=== PATIENT | female | born 1985 | race Hispanic/Latino ===

== ENCOUNTER 2019-02-12 05:14 | Day surgery (SDC) | payer OTHER ==
[2019-02-12 05:53] LABS: Bilirubin Negative (Negative); Blood, Urine Negative (Negative); Clarity Cloudy (Clear); Glucose, Urine (Dipstick) Negative (Negative); Leukocyte Negative (Negative); Nitrite Negative (Negative); Protein, Urine (Dipstick) Negative (Neg-Trace); Specific Gravity, Urine 1.025 (1.005-1.030)
[2019-02-12 05:58] LABS: #Basophils 0.1 thou/uL (0.0-0.2); #Eosinphils 0.1 thou/uL (0.0-0.7); #Lymphocytes 1.4 thou/uL (1.20-3.40); #Monocytes 0.8 thou/uL (0.11-0.59); #Neutrophils 14.6 thou/uL (1.40-6.50); %Basophils 0.6 % (0.0-1.0); %Eosinophils 0.5 % (0.0-10.0); %Lymphocytes 8.1 % (21.0-51.0); %Monocytes 4.7 % (0.0-10.0); %Neutrophils 86.1 % (42.0-75.0); Hemoglobin 12.9 g/dL (12.0-16.0); Mean Corpuscular Hemoglobin 29.5 pg (27.0-31.0); Mean Corpuscular Volume 84.2 fL (78.0-98.0); Mean Platelet Volume 7.3 fL (7.4-10.4); Platelet Count 250 thou/uL (130-400); RBC Distribution Width 12.4 % (11.5-14.5); Red Blood Cell (RBC) Count 4.37 mill/uL (4.20-5.40); White Blood Cell (WBC) Count 16.9 thou/uL (4.8-10.8)
[2019-02-12] MEDS ORDERED: Fleet Enema 133 ML BOT ONE (06:09)
[2019-02-12 06:10] LABS: ALT (SGPT) 28 U/L (8-55); AST (SGOT) 23 U/L (5-34); Albumin 3.8 g/dL (3.5-5.0); Alkaline Phosphatase 75 U/L (40-150); Anion Gap 15 mmol/L (10-20); BUN (Urea Nitrogen) 8 mg/dL (7.0-18.7); Bilirubin, Total 0.3 mg/dL (0.2-1.2); Calc. Creatinine Clearance 0 mL/min (70-130); Calcium 9.5 mg/dL (7.8-10.44); Carbon Dioxide 18 mmol/L (22-29); Chloride 106 mmol/L (98-107); Estimated GFR-MDRD Greater than 90; Globulin 3.8 g/dL (2.4-3.5); Glucose 101 mg/dL (70-105); Potassium 3.7 mmol/L (3.5-5.1); Protein, Total 7.6 g/dL (6.0-8.3); Sodium 135 mmol/L (136-145)
--- NOTE | 2019-02-12 07:52 | ULT ---
Abdominal Ultrasound: Multiple grayscale images of right upper quadrant obtained according to protocol. INDICATION: Pain FINDINGS: Liver: Nonspecific hyperechoic focus measuring slightly greater than 1 cm is present within the centr al aspect of the liver Gallbladder: Normal Gallbladder wall: Normal. Suggs's Sign: Negative Common bile duct is normal. Ascites: None Spleen: Unremarkable. Pancreas: Partially obscured by bowel content, limiting assessment. Kidneys: No acute abnormalities. Aorta/IVC: No acute process. IMPRESSION: Small hyperechoic focus of liver which could represent a cavernous hemangioma, although is nonspecifi c. Recommend hemangioma protocol MRI abdomen with and without contrast for confirmation.
--- NOTE | 2019-02-12 09:25 | MRI ---
MRI ABDOMEN WITHOUT CONTRAST: HISTORY: 33-year-old female with right lower quadrant abdominal pain and concern for appendi citis. FINDINGS: The liver, spleen, pancreas, adrenal glands, kidneys and gallbladder are normal. A single intrauterin e gestation is present. Ovaries are visualized. The appendix measures about 7 mm in diameter and is at upper limits of normal. A tiny amount of fluid periappendiceal fluid is seen anterior to the appendix. No significant periappendiceal inflammatory changes are seen. IMPRESSION: Findings are equivocal for early appendicitis.
[2019-02-12] MEDS ORDERED: Piperacillin/Tazobactam 3.375 GM VIAL ONE (09:50)
[2019-02-12] MEDS ORDERED: Sodium Chloride 0.9% 100 ML ONE (09:50)
[2019-02-12] MEDS ORDERED: Fentanyl 100 MCG/2 ML VIAL ONE (11:01)
[2019-02-12] MEDS ORDERED: Bupivacaine HCl 0.5%/Epinephrine 1:200,000/PF 30 ml Vial ONE (11:12)
--- NOTE | 2019-02-12 11:52 | HP ---
HISTORY OF PRESENT ILLNESS: Erika Zimmerman is a 33-year-old female, 13 weeks intrauterine , 5, para 4, presents with 24-hour history of right lower quadrant pain, anorexia, increased pain with movement, evaluated at [facility] with ultrasound and MRI suggesting appendicitis. The patient has a class exam and tenderness in right lower quadrant. White count elevated at 16. ALLERGIES: NONE. TOBACCO: None. ALCOHOL: None. MEDICATIONS: vitamins. PAST SURGICAL HISTORY: C-sections. PAST MEDICAL HISTORY: Noncontributory. REVIEW OF SYSTEMS: Ten-point noncontributory. PHYSICAL EXAMINATION: HEAD, EARS EYES, NOSE AND THROAT: Unremarkable. LUNGS: Clear to auscultation. CARDIAC: Regular rate and rhythm without murmur or gallop. ABDOMEN: Soft. Gravid uterus. Tenderness in right lower quadrant with guarding and rebound at McBurney's point. VITAL SIGNS: Weight 76 kg. Respiratory rate 18, temperature 98.5 degrees, blood pressure 105/86, heart rate 85. ASSESSMENT AND PLAN: Acute appendicitis. I have explained to her that there is a chance she may not have appendicitis. She does have significant constipation on her imaging studies. However, she does have a good history and exam, and imaging studies suggest early appendicitis. We recommend laparoscopic video appendectomy. She understands the risk of demise and miscarriage, and consents. We will proceed. Job ID: [id number]
[2019-02-12] MEDS ORDERED: Acetaminophen 500 MG TAB ONE (14:20)
--- NOTE | 2019-02-12 14:31 | ULT ---
Limited obstetrical ultrasound INDICATION: Post appendectomy, evaluate presence of heart tones TECHNIQUE: Grayscale, M-mode Doppler and Doppler images were obtained of the abdomen and pelvis to ev aluate the patient's known . COMPARISON: None. FINDINGS: Number of gestations: Single. Presentation: Variable. Placental location: Posterior Previa: No evidence for previa. Cervical length: 4.8 cm without evidence of funneling. KATE: 6.7 cm. heart rate: 145 bpm. The estimated due date by ultrasound is August 12, 2019. IMPRESSION: 1. Single live intrauterine gestation.
[2019-02-12] MEDS ORDERED: Phenylephrine HCL 10 MG/ML VIAL ONE (15:22)
[2019-02-12] MEDS ORDERED: PROPOFOL 200 MG/20 ML VIAL ONE (15:22)
[2019-02-12] MEDS ORDERED: Rocuronium Bromide 10 MG/ML (10ML VIAL) ONE (15:22)
[2019-02-12] MEDS ORDERED: Lidocaine 1% PF 5 ML VIAL ONE (15:22)
[2019-02-12] MEDS ORDERED: Glycopyrrolate 0.2 MG/ML 5 ML SYRINGE ONE (15:22)
[2019-02-12] MEDS ORDERED: Succinylcholine Chloride 20 MG/ML 10 ml SYRINGE FS ONE (15:22)
--- NOTE | 2019-02-12 19:50 | OP ---
DATE OF PROCEDURE: 02/12/2019 PREOPERATIVE DIAGNOSES: A 13-week intrauterine and appendicitis. POSTOPERATIVE DIAGNOSES: A 13-week intrauterine and appendicitis. PROCEDURE PERFORMED: Laparoscopic video appendectomy. ANESTHESIA: General, local 0.5% Marcaine with epinephrine 30 mL. DESCRIPTION OF PROCEDURE: The patient was taken to the operating room, where under general anesthesia, Aguilera catheter was placed at the beginning of the procedure and removed at the end. Abdomen was prepared with ChloraPrep and draped in routine fashion. Local anesthetic 0.5% Marcaine with epinephrine was infiltrated in the skin and subcutaneous tissue about each port site. Right lateral subcostal incision was made and pneumoperitoneum to 15 mmHg obtained with a Veress needle, replaced with a 5 port laparoscope inserted. Remaining trocars placed under laparoscopic visualization. Infraumbilical incision was made and a 5 port placed. Suprapubic incision was made and a 12 port placed. Appendix was acutely inflamed. Mesoappendix was taken down with the LigaSure. The stump of the appendix divided with Endo-NEHEMIAS blue load stapler. Stapled cecal stump was hemostatic and secured. Her appendix was removed, submitted to Pathology. Good hemostasis noted. Irrigant evacuated and pneumoperitoneum evacuated. All instruments removed and suprapubic fascia was approximated with 0 Vicryl. All skin incisions were approximated with subdermal 4-0 Monocryl and [place] glue applied. Job ID: [id number]
== END 2019-02-12 16:00 | disposition home or self-care (01) ==
LOC: SCSER 05:14 → SDC 10:36
PROVIDERS: ATTEND Specialist
PROC: 0DTJ4ZZ Resection of Appendix, Percutaneous Endoscopic Approach (ICD-10-PCS; principal; 2019-02-12)
DX: O99.611 Diseases of the digestive system complicating pregnancy, first trimester (principal); K35.80 Unspecified acute appendicitis; Z3A.13 13 weeks gestation of pregnancy
CPT/HCPCS: 74181; 76700; 76815; 80053; 81003; 84702; 85025; 88304; 96361; 96374; J0131; J0670; J2001; J2370; J2543; J2704; J3010; J3490

== ENCOUNTER 2019-03-18 09:28 | Emergency (ER) | payer OTHER ==
[2019-03-18 10:46] LABS: Actual Bicarbonate (HCO3a) 20.3 mEq/L (22-28); Analyzer IN Cardio ER; CO2 Tension 31.3 mmHg (35.0-45.0); Calcium, Ionized 1.22 mmol/L (1.12-1.30); Carboxyhemoglobin (COHb) 0.3 gm% (0.0-3.0); Hemoglobin (Hb) 13.6 g/dL (12.0-16.0); O2 Tension (PaO2) 82.3 mmHg (80.0-100.0); Potassium - ABG Lab 3.59 mmol/L (3.70-5.30); pH, Arterial 7.43 (7.35-7.45)
[2019-03-18 10:47] LABS: ALV-art Gradient 28.305 (0-20); Puncture Site RRA
== END 2019-03-18 11:52 | disposition home or self-care (01) ==
LOC: ERS 09:28
DX: O99.512 Diseases of the respiratory system complicating pregnancy, second trimester (principal); J68.9 Unspecified respiratory condition due to chemicals, gases, fumes and vapors; Z3A.18 18 weeks gestation of pregnancy
CPT/HCPCS: 82805; 99284

== ENCOUNTER 2019-07-21 12:25 | Inpatient (IN) | payer OTHER ==
[2019-07-21] MEDS ORDERED: Ondansetron PF 4 MG/2 ML Vial IVP PRN (12:38)
[2019-07-21] MEDS ORDERED: Promethazine HCl 25 MG/ML VIAL IM PRN (12:38)
[2019-07-21] MEDS ORDERED: Docusate 100 MG CAP PO PRN (12:38)
[2019-07-21] MEDS ORDERED: hydrALAZINE 20 MG/ML VIAL SLOW IVP PRN (12:38)
[2019-07-21 13:18] VITALS: BMI 38.4
--- NOTE | 2019-07-21 13:23 | PDOC.LDHP ---
Labor and Delivery H&P HPI: 34 year old wit torres history of C/Sx4 previously, Advanced Maternal Age, Anemia, and two weeks of severely elevated urine protein x 2 weeks, and first BP to 147/94 (initial clinic BP was 97/69). BPP was 6/8 today (-2 for breathing) . Urine protein to creatinine ratio is off the charts on L&D (>10 fold higher than the abnormal cut-off of 0.3 at a surprising 4.4). BPs are now improved on bed rest. PIH labs and CBC are WNL. Patient admitted for BMZ course, and further evaluation of her likely, developing preeclampsia. Given the anticipated 5th (initially scheduled for 37 weeks, the patient will likely remain hospitalized under close watch for necessary immediate should her symptoms worsen. We will request 4 units of pRBCs on hold prior to surgery. Grav: 5 Para: 4 Current complications: other (prior C/Sx4, AMA) Abnormal US findings: Yes (6/8 BPP) Current medications: pre- vitamins Previous surgical history: low tranverse CS Allergies/Adverse Reactions: Allergies Allergy/AdvReac Type Severity Reaction Status Date / Time No Known Allergies Allergy Verified 07/21/19 13:18 Social history: none - Physical Exam Vital signs reviewed and normal: yes General: NAD, resting Heart: RRR Lungs: nonlabored breathing Abdomen: gravid Extremeties: trace edema - Vaginal Exam cm dilated: 0 Effacement: 0% Station: -3 - Assessment 1. Admit for continued evaluation for severe preeclampsia, and need for immediate 5th , BMZ course x48 hours. - Plan -: for delivery Repeat BPP tomorrow. BMZ Course.
[2019-07-21] MEDS ORDERED: Betamet Acet/Betamet Na Ph 30 MG/5 ML VIAL ONE (13:49)
[2019-07-21] MEDS: Lactated Ringer's 1,000 ML IV SCH ×2 (14:14→19:55)
[2019-07-21 14:23] LABS: Hemoglobin 9.6 g/dL (12.0-16.0); Mean Corpuscular HGB CONC 34.2 g/dL (32.0-36.0); Mean Corpuscular Hemoglobin 26.7 pg (27.0-31.0); Mean Corpuscular Volume 78.3 fL (78.0-98.0); Mean Platelet Volume 9.4 fL (7.4-10.4); Platelet Count 197 thou/uL (130-400); RBC Distribution Width 14.5 % (11.5-14.5); Red Blood Cell (RBC) Count 3.57 mill/uL (4.20-5.40); White Blood Cell (WBC) Count 9.4 thou/uL (4.8-10.8)
[2019-07-21 15:08] LABS: Hep B Surf Ag Non-Reactive S/CO (NonReactive); Syphilis Antibody Nonreactive (Nonreactive); Syphilis Antibody Index 0.05 S/CO (<1.00 Non-Reactive)
[2019-07-21 15:14] LABS: ALT (SGPT) Less than 7 U/L (8-55); AST (SGOT) 14 U/L (5-34); Albumin 2.8 g/dL (3.5-5.0); Alkaline Phosphatase 207 U/L (40-110); Anion Gap 11 mmol/L (10-20); BUN (Urea Nitrogen) 8 mg/dL (7.0-18.7); Bilirubin, Total 0.2 mg/dL (0.2-1.2); Calc. Creatinine Clearance 211 mL/min (70-130); Calcium 8.4 mg/dL (7.8-10.44); Carbon Dioxide 21 mmol/L (22-29); Chloride 107 mmol/L (98-107); Estimated GFR-MDRD Greater than 90; Globulin 3.1 g/dL (2.4-3.5); Glucose 82 mg/dL (70-105); Potassium 4.2 mmol/L (3.5-5.1); Protein, Total 5.9 g/dL (6.0-8.3); Sodium 135 mmol/L (136-145)
[2019-07-21 15:15] LABS: Creatinine, Urine 50.96 mg/dL (47-110)
[2019-07-21] MEDS ORDERED: Zolpidem Tartrate 5 MG TAB PO PRN (21:54)
[2019-07-22] MEDS ORDERED: Acetaminophen 500 MG TAB PO SCH (09:30)
--- NOTE | 2019-07-22 10:17 | ULT ---
Exam: Nonstress biophysical profile HISTORY: Preeclampsia, 36 weeks TECHNIQUE: Nonstress biophysical profile was performed. FINDINGS: Single intrauterine gestation, cephalic presentation Anterior placenta. Limited evaluation for the presence or absence of placenta previa due to limited evaluation of the ce rvix. heart tones: 149 bpm Amniotic fluid index: 7.4 cm Nonstress biophysical profile: tone 2 breathing 2 movements 2 Amniotic fluid 2 IMPRESSION: 1. Nonstress biophysical profile score 8 out of 8
[2019-07-22] MEDS ORDERED: Acetaminophen 500 MG TAB PO PRN (20:35)
[2019-07-22] MEDS: Acetaminophen 500 MG TAB PO PRN (20:44)
[2019-07-23] MEDS: Lactated Ringer's 1,000 ML IV SCH ×3 (03:12→19:04)
[2019-07-23] MEDS: Acetaminophen 500 MG TAB PO PRN (03:19)
[2019-07-23] MEDS ORDERED: Magnesium Sulfate 20 gm/500 ml 20 GM/500 ML BAG ONE (04:11)
[2019-07-23] MEDS ORDERED: Magnesium Sulfate 20 gm/500 ml 20 GM/500 ML BAG IVPB PRN (04:16)
[2019-07-23] MEDS ORDERED: Calcium Gluc 4.6 MEQ/10 ML (100 MG/ML) SLOW IVP PRN (04:16)
[2019-07-23] MEDS ORDERED: Magnesium Sulfate 20 gm/500 ml 4 GM/100 ML BAG IVPB SCH (04:30)
[2019-07-23 04:38] LABS: #Lymphocytes 1.6 thou/uL (1.20-3.40); #Monocytes 0.4 thou/uL (0.11-0.59); #Neutrophils 11.6 thou/uL (1.40-6.50); %Basophils 0.1 % (0.0-1.0); %Eosinophils 0.4 % (0.0-10.0); %Lymphocytes 11.9 % (21.0-51.0); %Monocytes 2.9 % (0.0-10.0); %Neutrophils 84.7 % (42.0-75.0); Hemoglobin 9.4 g/dL (12.0-16.0); Mean Corpuscular Hemoglobin 26.2 pg (27.0-31.0); Mean Corpuscular Volume 79.3 fL (78.0-98.0); Mean Platelet Volume 9.1 fL (7.4-10.4); Platelet Count 209 thou/uL (130-400); RBC Distribution Width 14.7 % (11.5-14.5); Red Blood Cell (RBC) Count 3.58 mill/uL (4.20-5.40); White Blood Cell (WBC) Count 13.7 thou/uL (4.8-10.8)
[2019-07-23 04:58] LABS: ALT (SGPT) Less than 7 U/L (8-55); AST (SGOT) 9 U/L (5-34); Albumin 2.8 g/dL (3.5-5.0); Alkaline Phosphatase 199 U/L (40-110); Anion Gap 15 mmol/L (10-20); BUN (Urea Nitrogen) 10 mg/dL (7.0-18.7); Bilirubin, Total 0.2 mg/dL (0.2-1.2); Calc. Creatinine Clearance 187 mL/min (70-130); Calcium 8.7 mg/dL (7.8-10.44); Carbon Dioxide 17 mmol/L (22-29); Chloride 106 mmol/L (98-107); Estimated GFR-MDRD Greater than 90; Globulin 3.2 g/dL (2.4-3.5); Glucose 120 mg/dL (70-105); Potassium 4.2 mmol/L (3.5-5.1); Sodium 134 mmol/L (136-145)
[2019-07-23] MEDS ORDERED: ePHEDrine/0.9% NaCl/PF SYRINGE 50 mg/10 ml ONE (10:47)
[2019-07-23] MEDS ORDERED: Oxytocin 10 UNITS/ML VIAL ONE (10:47)
[2019-07-23] MEDS ORDERED: MORPHINE 5 MG/10 ML PF VIAL ONE (10:47)
[2019-07-23] MEDS ORDERED: Ondansetron PF 4 MG/2 ML Vial ONE (10:47)
[2019-07-23] MEDS ORDERED: Bicitra 30 ML UDCUP ONE (10:56)
[2019-07-23] MEDS ORDERED: Simethicone Chewable 80 MG TAB PO PRN (12:40)
[2019-07-23] MEDS ORDERED: Ondansetron PF 4 MG/2 ML Vial IVP PRN ×2 (12:40→12:52)
[2019-07-23] MEDS ORDERED: Adacel (T-DAP) 0.5 ML SYRINGE IM ONE (12:40)
[2019-07-23] MEDS ORDERED: Bisacodyl 10 MG SUPP PR PRN (12:40)
[2019-07-23] MEDS ORDERED: Zolpidem Tartrate 5 MG TAB PO PRN (12:40)
[2019-07-23] MEDS ORDERED: Lanolin Ointment 7 GM TUBE TOP PRN (12:40)
[2019-07-23] MEDS ORDERED: Varicella virus, LIVE 0.5 ML VIAL SC ONE (12:40)
[2019-07-23] MEDS ORDERED: diphenhydrAMINE 25 MG CAP PO PRN (12:40)
[2019-07-23] MEDS ORDERED: Misoprostol 200 MCG TAB PR PRN (12:40)
[2019-07-23] MEDS ORDERED: Promethazine HCl 25 MG/ML VIAL IM PRN ×2 (12:40→12:52)
[2019-07-23] MEDS ORDERED: hydrALAZINE 20 MG/ML VIAL SLOW IVP PRN (12:40)
[2019-07-23] MEDS ORDERED: NS / Oxytocin 40 units/1000ml 1,000 ML IV SCH (12:45)
[2019-07-23] MEDS ORDERED: diphenhydrAMINE 50 MG/ML VIAL IVP PRN (12:52)
[2019-07-23] MEDS ORDERED: HYDROmorphone 2 MG/ML VIAL SLOW IVP PRN (12:52)
[2019-07-23] MEDS ORDERED: Naloxone HCl 0.4 mg/ml Vial IV PRN (12:52)
[2019-07-23] MEDS ORDERED: Meperidine HCl/PF 25 MG/ML VIAL SLOW IVP PRN (12:52)
[2019-07-23] MEDS ORDERED: Ketorolac Tromethamine 30 MG/ML VIAL IVP PRN (12:52)
[2019-07-23] MEDS ORDERED: L&D-Morphine 4 MG/ML VIAL SLOW IVP PRN (12:52)
[2019-07-23] MEDS ORDERED: Promethazine HCl 25 MG SUPP PR PRN (12:52)
[2019-07-23] MEDS ORDERED: Naloxone HCl 0.4 mg/ml Vial IVP PRN ×2 (12:52)
[2019-07-23] MEDS ORDERED: Ondansetron HCl/PF 4 MG/2 ML Vial IVP PRN (12:52)
[2019-07-23] MEDS ORDERED: Ketorolac Tromethamine 30 MG/ML VIAL IVP SCH (13:00)
[2019-07-23] MEDS ORDERED: Communication Order-Pharmacy FS SCH (13:00)
[2019-07-23] MEDS: Docusate Calcium (SURFAK) 240 MG CAP PO SCH (20:33)
[2019-07-23] MEDS: Magnesium Sulfate 20 gm/500 ml 20 GM/500 ML BAG IVPB PRN (22:22)
[2019-07-24] MEDS ORDERED: HYDROcodone/Acetaminophen 5/325 mg Tablet PO PRN ×2 (01:00)
[2019-07-24] MEDS: Lactated Ringer's 1,000 ML IV SCH ×2 (04:38→17:03)
[2019-07-24 05:58] LABS: Hemoglobin 8.5 g/dL (12.0-16.0); Mean Corpuscular HGB CONC 33.5 g/dL (32.0-36.0); Mean Corpuscular Hemoglobin 26.6 pg (27.0-31.0); Mean Corpuscular Volume 79.3 fL (78.0-98.0); Mean Platelet Volume 8.9 fL (7.4-10.4); Platelet Count 199 thou/uL (130-400); RBC Distribution Width 14.6 % (11.5-14.5); Red Blood Cell (RBC) Count 3.18 mill/uL (4.20-5.40); White Blood Cell (WBC) Count 15.9 thou/uL (4.8-10.8)
[2019-07-24] MEDS: Acetaminophen 500 MG TAB PO PRN (06:24)
[2019-07-24] MEDS: Magnesium Sulfate 20 gm/500 ml 20 GM/500 ML BAG IVPB PRN (07:56)
[2019-07-24] MEDS: Docusate Calcium (SURFAK) 240 MG CAP PO SCH ×2 (15:37→21:53)
--- NOTE | 2019-07-24 15:49 | PDOC.PP ---
Post Progress Note Post Day #: 1 PO intake tolerated: yes Flatus: yes Ambulation: yes Weight Weight 210 lb - Physical Examination General: NAD Cardiovascular: no m/r/g, RRR Respiratory: clear to auscultation bilaterally, non-labored breathing Abdominal: + bowel sounds, lochia, no distention, appropriately TTP Extremities: negative homans (B) Skin: CS incision dry & intact, no rash Neurological: no gross focal deficits Psychiatric: A&Ox3, normal affect Result Diagrams: 07/24/19 05:37 07/23/19 04:28 Additional Labs: Post Labs Blood Type A POSITIVE 07/21/19 15:23 Hep Bs Antigen Non-Reactive S/CO (NonReactive) 07/21/19 13:30
--- NOTE | 2019-07-24 15:51 | PDOC.EVN ---
Event Note - Event Note Event Note: 34 year old at 36 weeks with history of C/Sx4 previously, Advanced Maternal Age, Anemia, and of severely elevated urine protein x 2 weeks, and first BP to 147/94 (initial clinic BP was 97/69). BPP was 6/8 today (-2 for breathing) in clinic yesterday. Urine protein to creatinine ratio is off the charts on L&D (>10 fold higher than the abnormal cut-off of 0.3 at a surprising 4.4). Patient admitted for suspected somewhat atypical preeclampsia, completing 48 hours of BMZ. 5th planned for delivery. Patient noting headaches, but most blood pressures remain normal, despite 10 fold urine protein elevation. PIH labs WNL. Platelets WNL. CMP is WNL. The patient will likely remain hospitalized under close watch for necessary immediate should her symptoms worsen. We will request 4 units of pRBCs on hold prior to surgery. Gen: ill appearing CV: RRR Resp: CTA b/l Abdom: gravid, NT DTR's 2+ (WNL). Lower Extremity edema - 1+ (stable) A: 1. 36 week IUP 2. IVF prgnancy 3. Previous BTL 4. Preeclampsia 5. prior CS x4 6. AMA P: 1. BMZ course in progress 2. Repeat CS for delivery 3. Continue in-patient care for ensuing severe preeclampsia 4. Magnesium sulfate likely to be needed before long
[2019-07-24] MEDS ORDERED: hydrALAZINE 20 MG/ML VIAL SLOW IVP PRN (16:06)
[2019-07-24] MEDS ORDERED: Promethazine HCl 25 MG/ML VIAL IM PRN (16:06)
[2019-07-24] MEDS ORDERED: Ondansetron PF 4 MG/2 ML Vial IVP PRN (16:06)
[2019-07-24] MEDS ORDERED: Bisacodyl 10 MG SUPP PR PRN (16:06)
[2019-07-24] MEDS ORDERED: Lanolin Ointment 7 GM TUBE TOP PRN (16:06)
[2019-07-24] MEDS ORDERED: Zolpidem Tartrate 5 MG TAB PO PRN (16:06)
[2019-07-24] MEDS ORDERED: diphenhydrAMINE 25 MG CAP PO PRN (16:06)
[2019-07-24] MEDS: HYDROcodone/Acetaminophen 5/325 mg Tablet PO PRN (17:54)
--- NOTE | 2019-07-24 21:47 | OP ---
DATE OF PROCEDURE: 07/23/2019 TIME OF SERVICE: At 1139 hours, Central Standard Time. PREOPERATIVE DIAGNOSIS: Intrauterine at 36 weeks and 3 days with severe preeclampsia. POSTOPERATIVE DIAGNOSIS: Intrauterine at 36 weeks and 3 days with severe preeclampsia. PROCEDURE PERFORMED: Repeat 5th section after in-vitro fertilization with previous tubal ligation. FINDINGS: Viable male , weighing 2576 g or 5 pounds 11 ounces with a tight nuchal cord x2, Apgars 8 and 9. QUANTITATIVE BLOOD LOSS: 615 mL. COMPLICATIONS: None. DETAILS OF THE PROCEDURE: The patient was consented and taken back to the operating room where spinal anesthesia was found to be adequate. She was then prepped and draped in the normal sterile fashion. A timeout was performed by the entire operative team. The incision was then marked with a marking pen tested using sharp pickups. An incision was then made with a scalpel. The incision was carried through the adipose tissue down to the underlying rectus fascia using both sharp dissection as well as cautery. Once the fascia was identified, it was incised in the midline and then the fascial incision was carried through in both lateral directions using sharp as well as cautery dissection techniques. Next, the superior aspect of the rectus fascia was grasped with 2 Hao clamps, which was tented up and the rectus muscles were dissected off using blunt dissection as well as cautery dissection. Similarly, the inferior aspect of the fascial incision was grasped with 2 Hao clamps, tented up and the rectus muscles were dissected off bluntly as well as sharply. Next, the rectus muscles were in the midline and the peritoneum identified. The peritoneum was then carefully grasped with 2 hemostats and entered sharply. The peritoneal incision was extended superiorly and inferiorly and bladder blade was placed in the lower abdomen. At this point, the uterus was identified and the bladder flap was then developed using pickups with teeth as well as Metzenbaum scissors in both lateral directions. The bladder flap was then dissected downwards using the isobutylene operator chief's finger as well as Metzenbaum scissors. The bladder blade was replaced. The lower uterine segment was then identified and entered sharply using a clean scalpel. The uterine incision was then dissected downwards until thin layer of muscle remained and this was entered bluntly using a hemostat to avoid any injury to the baby. The uterine incision was then stretched using two fingers in both lateral directions. An amniotomy was performed artificially using a hemostat and the baby was delivered using fundal pressure in a gentle fashion. Once out, the baby's mouth and nose were bulb suctioned, cord clamped and cut, and the baby was handed to waiting attendants. Next, the uterus was exteriorized, cleared of all clots and debris and the uterine incision was repaired with #1 Monocryl in a running locking fashion. A 2nd suture of the same type was used to obtain complete hemostasis at the uterine incision. The bladder flap was reapproximated using 3-0 Monocryl. Next, patient's left and right adnexa were inspected and appeared to be within normal limits. The posterior cul-de-sac was blotted dry and hemostasis assured. One more look at the uterine incision demonstrated hemostasis. Next, the uterus was replaced back within the abdomen. The peritoneum was reapproximated using 2-0 Monocryl without difficulty. The rectus muscles were then allowed to come back together and 0 chromic was used to aid in reapproximation of the muscle as necessary. The rectus fascia was then reapproximated in a running fashion using 0 Vicryl suture. The adipose tissue was then examined and appeared to be well approximated without any obvious separations. Finally, the skin was reapproximated with 3-0 Monocryl on a Gabe needle without difficulty and Dermabond adhesive was applied to the skin. Once the glue was dry, the drapes were removed and the patient was transferred to an ambulatory bed where she was taken to recovery awake and in stable condition. Sponge, lap, and needle counts were correct x3. Job ID: [id number]
[2019-07-24] MEDS: Ibuprofen 800 MG TAB PO SCH (21:53)
[2019-07-24] MEDS ORDERED: Ibuprofen 800 MG TAB PO SCH (22:00)
[2019-07-25] MEDS: HYDROcodone/Acetaminophen 5/325 mg Tablet PO PRN ×5 (00:44→19:46)
[2019-07-25] MEDS: Ibuprofen 800 MG TAB PO SCH ×3 (06:06→21:38)
[2019-07-25] MEDS ORDERED: Adacel (T-DAP) 0.5 ML SYRINGE IM ONE (09:00)
[2019-07-25] MEDS ORDERED: Varicella virus, LIVE 0.5 ML VIAL SC ONE (09:00)
[2019-07-25] MEDS ORDERED: Measles/Mumps/Rubella 10 MCG/0.5 ML VIAL SC ONE (09:00)
[2019-07-25] MEDS: Prenatal Vitamin 1 TAB PO SCH (09:50)
[2019-07-25] MEDS: Docusate Calcium (SURFAK) 240 MG CAP PO SCH ×2 (09:50→21:38)
[2019-07-25] MEDS: Simethicone Chewable 80 MG TAB PO PRN ×2 (15:15→21:38)
--- NOTE | 2019-07-25 23:52 | PDOC.PP ---
Post Progress Note Post Day #: 2 PO intake tolerated: yes Flatus: yes Ambulation: yes Vital Signs (12 hours) Temp Pulse Resp BP Pulse Ox 07/25/19 19:40 97.6 F 72 16 120/70 96 07/25/19 17:38 98.2 F 84 15 123/78 96 07/25/19 11:56 98.2 F 79 13 134/79 96 Weight Weight 210 lb - Physical Examination General: NAD Cardiovascular: no m/r/g, RRR Respiratory: clear to auscultation bilaterally Abdominal: + bowel sounds, lochia, no distention Extremities: negative homans (B) Skin: CS incision dry & intact, no rash Neurological: no gross focal deficits Psychiatric: A&Ox3, normal affect Result Diagrams: 07/24/19 05:37 07/23/19 04:28 Additional Labs: Post Labs Blood Type A POSITIVE 07/21/19 15:23 Hep Bs Antigen Non-Reactive S/CO (NonReactive) 07/21/19 13:30
[2019-07-26] MEDS: HYDROcodone/Acetaminophen 5/325 mg Tablet PO PRN ×3 (04:11→15:07)
[2019-07-26] MEDS: Ibuprofen 800 MG TAB PO SCH ×2 (06:15→15:06)
[2019-07-26 08:59] VITALS: BP 129/78; TEMP 98.3
[2019-07-26] MEDS: Simethicone Chewable 80 MG TAB PO PRN (09:20)
[2019-07-26] MEDS: Docusate Calcium (SURFAK) 240 MG CAP PO SCH (09:20)
[2019-07-26] MEDS: Prenatal Vitamin 1 TAB PO SCH (09:20)
== END 2019-07-26 16:02 | disposition home or self-care (01) | DRG 788 ==
LOC: L&D 12:25 → 3SW 07-24 16:03
PROVIDERS: ADMIT Obstetrics & Gynecology; ATTEND Obstetrics & Gynecology
PROC: 10D00Z1 Extraction of Products of Conception, Low, Open Approach (ICD-10-PCS; principal; 2019-07-23)
DX: O14.14 Severe pre-eclampsia complicating childbirth (principal); Z3A.36 36 weeks gestation of pregnancy; Z37.0 Single live birth; O34.211 Maternal care for low transverse scar from previous cesarean delivery; O69.1XX0 Labor and delivery complicated by cord around neck, with compression, not applicable or unspecified
CPT/HCPCS: 36415; 51702; 76819; 80053; 82570; 84156; 85025; 85027; 86780; 86850; 86900; 86901; 87340; J0690; J0702; J1885; J2274; J2405; J2590; J3475